=== PATIENT | female | born 1930 | race Asian ===

== ENCOUNTER 2016-09-04 16:25 | Inpatient (IN) | payer OTHER, BC ==
[2016-09-04] MEDS ORDERED: LIDOCAINE W/ SODIUM BICARB 0.5 ML SYR SUBD PRN (16:52)
[2016-09-04] MEDS ORDERED: BISACODYL 5 MG TABLET PO PRN (16:52)
[2016-09-04] MEDS ORDERED: NORMAL SALINE 10 ML SYRINGE FLUSH IVP PRN (16:52)
[2016-09-04] MEDS ORDERED: HYDROcodone-APAP 5 MG -325 MG TABLET PO PRN (16:52)
[2016-09-04] MEDS ORDERED: ONDANSETRON 4 MG/2 ML VIAL IVP PRN (16:52)
[2016-09-04] MEDS ORDERED: CloNIDine Tab 0.1 MG TABLET PO ONE (16:55)
--- NOTE | 2016-09-04 16:58 | PDOC ---
History and Physical - History of Present Illness Chief Complaint: High blood pressure History of Present Illness: Is a very nice 86-year-old female with past medical history of hypertension I was called by Dr. Sandoval her primary care physician that her blood pressure in the office was 200/110 and he would like her admitted and observed and her blood pressure treated. Patient has no complaints no nausea no vomiting no chest pain no headaches double vision all review of systems are negative for blood pressures now well controlled on the to medication we gave her Past Medical History Medical History: Hypertension Tobacco Use: Never Smoker Substance Use Type: None Alcohol Use: None Medication / Allergies Home Medications: Home Medications Medication Instructions Recorded Confirmed Type Metoprolol Succinate 1 tab ORAL QD #90 tab 04/09/16 Clinic Potassium Chloride [Klor-Con 10] 10 meq PO DAILY #90 tab 04/09/16 Clinic Ramipril [Altace] 10 mg PO DAILY #90 cap 04/09/16 Clinic Calcium Carbonate/Vitamin D3 1 tab PO tab 09/04/16 History [Calcium 600-Vit D3 200 Tablet] Vit A,C & E/Lutein/Minerals 1 each PO tab 09/04/16 History [Ocuvite With Lutein Tablet] Allergies/Adverse Reactions: Allergies Allergy/AdvReac Type Severity Reaction Status Date / Time No Known Allergies Allergy Verified 09/04/16 17:04 Review of Systems - Review of Systems All Systems: Reviewed & No Additional Complaints Except as Stated - Respiratory Respiratory: DENIES: Negative System Review, Cough, Sputum, Dyspnea At Rest, Dyspnea with Exertion, Pleuritic Pain, Hemoptysis, Wheezing, Other, See HPI - Cardiovascular Cardiovascular: DENIES: Negative System Review, Chest Pain, Edema, Syncope, Palpitations, Orthopnea, Paroxysmal Nocturnal Dyspnea, Other, See HPI - Gastrointestinal Gastrointestinal / Abdominal: DENIES: Negative System Review, Nausea, Vomiting, Diarrhea, Constipation, Abdominal Pain, Bloody Stool, Poor Appetite, Heartburn, Regurgitation, Bloating, Lactose Intolerance, Melena, Bright Red Blood Per Rectum, Other, See HPI Exam - Vitals Vital Signs: Vital Signs Height 5 ft - General General Appearance: POSITIVE: No Acute Distress, Cooperative - Head Head Exam: POSITIVE: Normal Inspection, Normocephalic, Atraumatic - Eye Eye Exam: POSITIVE: Normal Appearance, PERRL, EOMI - Neck Neck Exam: POSITIVE: Normal Inspection, No Tenderness - Respiratory Respiratory Exam: POSITIVE: Clear to Auscultation - Bilaterally, Breathing Non Labored - Cardiovascular Cardiovascular Exam: POSITIVE: RRR, No Murmur, No Clicks, No Gallops - GI/Abdominal GI/Abdominal Exam: POSITIVE: Non Tender, Non Distended, Soft - Extremities Extremities Exam: POSITIVE: Normal Inspection, No Clubbing Present, No Edema Present - Neurological Neurological Exam: POSITIVE: Alert, Oriented x 3, CN II-XII Intact, No Facial Droop, Speech Intact / Clear, Moves All Extremities Equally Results - Labs CBC and BMP: 09/04/16 17:10 Assessment and Plan - Patient Problems (1) Hypertensive urgency Current Visit: Yes Status: Acute Comment: clonidine po and lisinopril 40 daily start now,ekg tro cbc cmp tsh labs were reviewed and are within normal limits there is low potassium which she is being replaced her blood pressures within normal limits at this point she received 0.1 clonidine and lisinopril 40 I anticipate her going home with this medication continue potassium replacement (2) Hypokalemia Current Visit: No Status: Acute Comment: Replace 40 by mouth twice a day Photo / Body Diagrams - Uploaded Photos Uploaded Photos:
[2016-09-04] MEDS ORDERED: LISINOPRIL 20 MG TABLET PO SCH (17:00)
[2016-09-04 17:32] LABS: CALCIUM 9.8 mg/dL (8.7-10.7); SERUM ALBUMIN 4.6 g/dL (3.5-4.8)
[2016-09-04] MEDS: HEPARIN 5000 UNIT/1 ML SUBCUT SCH (17:43)
--- NOTE | 2016-09-04 18:22 | EKG ---
[address] [place] [address] Measurements Intervals [place] Rate: 62 P: 70 PA: 164 QRS: 59 QRSD: 84 T: 33 QT: 419 QTc: 425 Interpretive Statements SINUS RHYTHM POSSIBLE LEFT ATRIAL ENLARGEMENT NONSPECIFIC ST & T-WAVE ABNORMALITY CONSIDER INFERIOR ISCHEMI Compared to ECG 06/22/2014 16:19:01 T-wave abnormality now present Electronically Signed On 09-05-16 12:25:57 MDT by Boo Anguiano [email or web address]
[2016-09-04] MEDS: POTASSIUM CHLORIDE 20 MEQ TAB PO SCH ×3 (18:45→19:01)
[2016-09-05] MEDS: HEPARIN 5000 UNIT/1 ML SUBCUT SCH ×2 (01:30→09:10)
[2016-09-05 04:41] LABS: BASOPHILS # (AUTO) 0.04 10*3/UL; BASOPHILS % (AUTO) 0.9 % (0-1); EOSINOPHILS # (AUTO) 0.11 10*3/UL; EOSINOPHILS % (AUTO) 2.5 % (0-8); HEMATOCRIT 35.2 % (37.0-47.0); HEMOGLOBIN 11.1 g/dL (12.0-16.0); LYMPHOCYTES # (AUTO) 1.65 10*3/uL; MEAN CORPUSCULAR HEMOGLOBIN 27.7 PG (27-31); MEAN CORPUSCULAR HGB CONC 31.5 g/dL (33-37); MEAN CORPUSCULAR VOLUME 87.8 FL (81-99); MONOCYTES # (AUTO) 0.45 10*3/UL (0.3-0.8); MONOCYTES % (AUTO) 10.2 % (5-15); NEUTROPHILS # (AUTO) 2.16 10*3/UL; RED BLOOD COUNT 4.01 10^6/uL (4.20-5.40)
[2016-09-05 04:42] LABS: PLATELET MORPHOLOGY COMMENT NORMAL MORPHOLOGY (NORM); RBC MORPHOLOGY COMMENT NORMAL MORPHOLOGY (NORM); WBC MORPHOLOGY COMMENT NORMAL MORPHOLOGY (NORM)
[2016-09-05 04:52] LABS: CALCIUM 8.9 mg/dL (8.7-10.7)
[2016-09-05 07:42] VITALS: RESP 20
[2016-09-05] MEDS ORDERED: LISINOPRIL 20 MG TABLET PO ONE (08:12)
[2016-09-05] MEDS ORDERED: POTASSIUM CHLORIDE 20 MEQ TAB PO ONE (09:00)
[2016-09-05] MEDS: POTASSIUM CHLORIDE 20 MEQ TAB PO SCH (09:11)
--- NOTE | 2016-09-05 11:28 | DCSUMMARY ---
Hospitalization Summary Hospital Course: Final Discharge Diagnosis: Current Visit Problems Problem Status Priority Diagnosed Code Hypertensive urgency Acute I16.0 Hypokalemia Diagnostic Data, Laboratory Data, and Procedures of Signifigance: Laboratory Results 09/04/16 09/05/16 Range/Units 17:10 04:14 WBC 4.41 L (4.8-10.8) 10^3/uL RBC 4.01 L (4.20-5.40) 10^6/uL Hgb 11.1 L (12.0-16.0) g/dL Hct 35.2 L (37.0-47.0) % MCV 87.8 (81-99) FL MCH 27.7 (27-31) PG MCHC 31.5 L (33-37) g/dL RDW Std Deviation 43.1 (39-50) fL RDW Coeff of Dano 13.8 (11.5-14.5) % Plt Count 205 (140-350) 10*3/uL MPV 10.0 (7.4-12.2) FL Immature Gran % (Auto) 0 (0-5) % Neut % (Auto) 49.0 L (50-80) % Lymph % (Auto) 37.4 (10-50) % Bowie % (Auto) 10.2 (5-15) % Eos % (Auto) 2.5 (0-8) % Baso % (Auto) 0.9 (0-1) % Immature Gran # (Auto) 0 10*3/UL Neut # (Auto) 2.16 10*3/UL Lymph # (Auto) 1.65 10*3/uL Bowie # (Auto) 0.45 (0.3-0.8) 10*3/UL Eos # (Auto) 0.11 10*3/UL Baso # (Auto) 0.04 10*3/UL WBC Morphology Comment Normal morphology (NORM) Plt Morphology Comment Normal morphology (NORM) RBC Morph Comment Normal morphology (NORM) PT 10.7 (9.7-11.4) secs INR 1.04 (0.00-5.90) N/A Sodium 139 136 (135-145) meq/L Potassium 2.8 L 2.8 L (3.8-5.2) meq/L Chloride 93 L 98 (98-112) meq/L Carbon Dioxide 32 31 (23-33) meq/L Anion Gap 14 7 (5-20) BUN 12 15 (7-22) mg/dL Creatinine 0.6 0.6 (0.50-1.20) mg/dL Estimated GFR (>60 ml/min/1.73m(2)) BUN/Creatinine Ratio 20.00 25.00 H (6-20) Glucose 88 81 (78-110) mg/dL Calculated Osmolality 286.0 281.0 (267-292) mOsm/kg Calcium 9.8 8.9 (8.7-10.7) mg/dL Magnesium 1.9 (1.6-2.4) mg/dL Total Bilirubin 0.9 (0.3-1.2) mg/dL AST 27 (8-39) IU/L ALT 21 (9-52) IU/L Alkaline Phosphatase 69 (38-126) IU/L Troponin I 0.019 (< 0.040) ng/mL Total Protein 7.9 (6.1-8.0) g/dL Albumin 4.6 (3.5-4.8) g/dL Globulin 3.4 (2.50-4.10) g/dL Albumin/Globulin Ratio 1.30 (1.3-2.0) mg/g TSH 1.80 (0.2700-4.2000) uIU/mL History and Physical pertinent to Admission: Course of Hospitalization: Is a very nice 86-year-old female who was seen at the primary care as a physician's office yesterday with blood pressure in 200 range systolic 110 diastolic was admitted for hypertensive urgency patient was treated with 0.1 and clonidine and lisinopril 40 a pressure came down nicely this was continued that the next day which is this morning her blood pressures remain really well controlled. Her potassium was replaced we have given her the 40 mEq yesterday and 80 this morning we will be sending her home on the 10 mEq a day she will recheck her potassium level on Friday when she sees her primary care physician again her magnesium was within normal limits patient has no chest pain nausea vomiting headache and is back to her normal self. All the above was discussed with all family members and son and [id number] and nursing On the date of discharge, the patient was examined: Gen.: No acute distress, alert, nontoxic Heart: Regular rate and rhythm, no murmurs, clicks, gallops, or rubs Lungs: Clear to auscultation bilaterally, breathing is nonlabored Abdomen/GI: Normal tones on auscultation, soft, nontender, nondistended Musculoskeletal/extremities: No clubbing, cyanosis, or edema Vitals reviewed and are listed below Vital Signs (24 hrs) Temp Pulse Pulse Resp BP BP Pulse Ox 09/05/16 10:00 121/78 09/05/16 09:09 98.6 F 57 L 20 165/100 96 09/05/16 07:39 98.6 F 57 L 20 165/100 96 09/05/16 07:00 52 L 09/05/16 05:37 94 09/05/16 04:36 98.0 F 55 L 18 157/99 94 09/05/16 03:00 54 L 09/05/16 00:43 98.6 F 61 18 95 09/04/16 23:40 138/92 09/04/16 23:00 54 L 09/04/16 22:40 170/84 09/04/16 21:30 124/85 09/04/16 21:00 97.8 F 58 L 18 122/81 98 09/04/16 20:40 122/87 09/04/16 19:40 138/92 09/04/16 19:00 56 L 58 L 18 09/04/16 17:00 97.3 F 75 18 180/102 90 09/04/16 16:53 97.3 F 75 18 180/102 90 Assessment and Plan: 1. As per discharge assessments above 2. Disposition: Home 3. Condition on discharge, stable and improved. 4. Diet: regular diet 5. Activities: resume normal activities 6. Follow-Up: 1. PCP Dr. Almendarez on Friday or Friday with the CMP 2. 7. Medications at the Time of Discharge: Home Medications Medication Instructions Recorded Confirmed Type Metoprolol Succinate 1 tab ORAL QD #90 tab 04/09/16 Clinic Potassium Chloride [Klor-Con 10] 10 meq PO DAILY #90 tab 04/09/16 Clinic Calcium Carbonate/Vitamin D3 1 tab PO tab 09/04/16 History [Calcium 600-Vit D3 200 Tablet] Vit A,C & E/Lutein/Minerals 1 each PO tab 09/04/16 History [Ocuvite with Lutein Tablet] Lisinopril 40 mg PO DAILY #30 tab 09/05/16 Rx 8. Time, care, counseling and coordination of care for this discharge is greater than 30 minutes. Exam - Vitals Vital Signs: Vital Signs Temperature 98.6 F Temperature Source Oral Pulse Rate [Pulse Oximeter] 57 Pulse Rate 52 Respiratory Rate 20 Blood Pressure [Right Arm] 121/78 Blood Pressure [Left Arm] 165/100 Pulse Ox 96 Oxygen Flow Rate 1 LITERS Oxygen Delivery Method Nasal Cannula Height 5 ft Weight 32.931 kg Patient Problems - Patient Problem List (1) Hypertensive urgency Current Visit: Yes Status: Acute (2) Hypokalemia Current Visit: No Status: Acute
[2016-09-05 12:13] VITALS: TEMP 98.3
== END 2016-09-05 12:39 | disposition home or self-care (01) | DRG 305 ==
LOC: MED/SURG 16:45
PROVIDERS: ADMIT Family Medicine; ATTEND Internal Medicine
DX: I16.0 Hypertensive urgency (principal); E87.6 Hypokalemia
CPT/HCPCS: 36415; 80048; 80053; 83735; 84443; 84484; 85025; 85610; 93005; 93010; 94761; J1644

== ENCOUNTER → 2016-09-04 | Outpatient (CLI) | payer OTHER, BC | LOC: MMPC 11:11 | PROVIDERS: ATTEND Internal Medicine | DX: I10 Essential (primary) hypertension (principal); R42 Dizziness and giddiness | CPT/HCPCS: 99214; G0463 ==

== ENCOUNTER → 2016-09-09 | Outpatient (CLI) | payer OTHER, BC | LOC: MMPC 11:11 | PROVIDERS: ATTEND Internal Medicine | DX: I10 Essential (primary) hypertension (principal); Z86.79 Personal history of other diseases of the circulatory system | CPT/HCPCS: 99214; G0463 ==

== ENCOUNTER → 2016-10-09 | Outpatient (CLI) | payer OTHER, BC | LOC: MMPC 11:11 | PROVIDERS: ATTEND Internal Medicine | DX: I10 Essential (primary) hypertension (principal); Z86.79 Personal history of other diseases of the circulatory system | CPT/HCPCS: 99213; G0463 ==

== ENCOUNTER → 2017-01-15 | Outpatient (CLI) | payer OTHER, BC ==
--- NOTE | 2017-01-15 11:24 | DI ---
History: Asymptomatic postmenopausal bone density Comparison: None: Findings: Low-dose CT images were taken through the lumbar spine, and the right hip for bone density analysis. Note is made of the right hip was utilized for analysis due to a left hip prosthesis. Analysis at the level of L1 yields a BMD value of 42.0. Analysis at the level of L2 yields a BMD of 41.2. The average BMD of the right the lumbar spine is 41.6. T score is -0.85, and Z score is - 4.88. Values indicate osteoporosis Analysis of the left femoral neck yields a BMD of 0.389 with a T score of -3.66. BMD value at the tro chanteric region is 0.261 with a T score of -4.5. Intratrochanteric BMD is 0.376 with a T score of -5 .25. With a T score of -4.87 indicating osteoporosis Impression Osteoporosis based on measurements taken from both the lumbar spine, in the proximal femur
== END ==
LOC: CT 10:33
PROVIDERS: ATTEND Internal Medicine
DX: Z78.0 Asymptomatic menopausal state (principal); Z13.820 Encounter for screening for osteoporosis
CPT/HCPCS: 77078

== ENCOUNTER → 2017-01-23 | Outpatient (CLI) | payer OTHER, BC ==
[2017-01-23 11:48] LABS: BUN/CREATININE RATIO 28.33 (6-20); CALCIUM 9.3 mg/dL (8.7-10.7)
== END ==
LOC: LAB 11:08
PROVIDERS: ATTEND Internal Medicine
DX: M81.0 Age-related osteoporosis without current pathological fracture (principal)
CPT/HCPCS: 36415; 80048